=== PATIENT | female | born 1985 | race Caucasian/White ===

== ENCOUNTER 2025-01-21 15:45 | Emergency (ER) | payer OTHER, SELFPAY ==
[2025-01-21 15:50] VITALS: BP 119/76
[2025-01-21] MEDS: ADRENALIN 0.3 MG IM (16:02)
[2025-01-21] MEDS: BENADRYL 50 MG IV (16:03)
[2025-01-21] MEDS: PEPCID 20 MG IV (16:05)
[2025-01-21] MEDS: SOLU-MEDROL PF 125 MG IV (16:05)
[2025-01-21 16:06] VITALS: BP 126/98
[2025-01-21 16:08] VITALS: BMI 22.7
[2025-01-21 17:00] VITALS: BP 115/70
--- NOTE | 2025-01-21 17:10 | ED.GENMED ---
History of Present Illness
General
Chief Complaint: Allergic Reaction
Time Seen by Provider: 01/21/25 15:59
Nursing documentation reviewed up to this point in time: agreed with
History of Present Illness
History of Present Illness:
39-year-old female presents to the ER for evaluation of facial swelling, change in voice, diffuse itchiness which started abruptly 40 minutes prior to arrival. Patient ate falafel for lunch. She has no prior history of anaphylactic medication or
food allergies. She states she had been feeling well prior to abrupt onset of symptoms. No nausea. No shortness of breath. No chest pain. She does take daily metoprolol which she took this morning. She did not taken medications for her
symptoms prior to arrival.
Review of Systems
Review of Systems
Allergies reviewed?: Yes
Phy Exam
Physical Exam
Physical Exam:
Vital signs reviewed, patient is awake, alert, diffuse edema noted to face, with closure of right eye due to periorbital edema, moderate swelling noted to left eye, voice is hoarse, no sublingual swelling seen, posterior pharynx appears clear, no
trismus, heart regular rate and rhythm without murmurs or ectopy, lungs are clear to auscultation without wheezes rales or rhonchi, abdomen is soft and nontender, no hives seen, diffuse erythema noted to skin which is blanching, GCS is 15, 2+ DP
pulses present symmetric bilateral feet
Course
Orders/Labs/Results
Orders:
Orders
01/21/25 15:58
EPINEPHrine PF [Adrenalin] 1 mg .ROUTE .STK-MED ONE
01/21/25 15:59
Diphenhydramine [Benadryl] 50 mg .ROUTE .STK-MED ONE
Diphenhydramine [Benadryl] 50 mg IV NOW STA
EPINEPHrine PF [Adrenalin] 0.3 mg IM NOW STA
Famotidine [Pepcid] 20 mg .ROUTE .STK-MED ONE
Famotidine [Pepcid] 20 mg IV NOW STA
MethylPREDNISolone PF [Solu-Medrol Pf] 125 mg .ROUTE .STK-MED ONE
MethylPREDNISolone PF [Solu-Medrol Pf] 125 mg IV NOW STA
Vital Signs
Initial and Last Documented VS:
Initial Vital Signs
Temp Pulse Resp BP Pulse Ox
98.5 F 105 20 119/76 97
01/21/25 15:50 01/21/25 15:50 01/21/25 15:50 01/21/25 15:50 01/21/25 15:50
Last Documented Vital Signs
Temp Pulse Resp BP Pulse Ox
98.5 F 78 19 116/72 99
01/21/25 15:50 01/21/25 20:00 01/21/25 20:00 01/21/25 20:00 01/21/25 20:00
MDM/Problems Addressed
Differential Diagnosis Includes:
differential diagnosis to consider but not limited to allergic reaction, idiopathic angioedema, anaphylaxis along with other etiologies considered
*Pulse Oximetry
SaO2: 100
Oxygen Mode of Delivery: Room air
Patient hypoxic: no
*[employer] Interpretation
Rate: normal
Interpretation: normal
*Critical Care Note
Total Time (30-74mins, 75-104mins- exclusive of procedures): 30 minutes of critical ca
comment:
30 minutes critical care time utilized for evaluation and reassessment of patient given life-threatening nature of illness
Update Note
Update Note:
Patient reevaluated shortly after administration of epi with improvement in facial edema. Will continue to observe for 4 hours after epi administration. Patient also given Solu-Medrol, Pepcid, Benadryl.
1847: Near complete resolution of periorbital edema, voice is now back to normal. Patient resting comfortably without any further pruritus. Will continue to observe. Patient agrees with plan of care.
2029: Patient feeling well. Ready to go home. I discussed with her strict return precautions along with medication usage at home. Patient is just visiting the area and will follow-up with her primary care physician tomorrow to discuss referral to
[facility]. She has no questions at the current time. Will discharge
ED Attending Note
-
Portions of this chart may have been created with voice recognition software.� Occasional wrong word or��sound alike� substitutions may have occurred due to the inherent limitations of voice recognition software.
Discharge Plan
Departure
Patient Disposition: Home (Routine Discharge)
Date of Disposition: 01/21/25
Time of Disposition: 20:24
Patient with high blood pressure during this ER visit?: No
Discharge Problem:
Anaphylaxis
Prescriptions:
New
prednisone 50 mg tablet
50 mg PO DAILY Qty: 4 0RF
epinephrine [EpiPen 2-Jefry] 0.3 mg/0.3 mL auto-injector
0.3 mg IM Q5-15M PRN (Reason: anaphylaxis) Qty: 2 0RF
Referrals:
NONE,* [Family Provider, Internal Medicine]
Stand Alone Forms: Return to Work
Activity Restrictions/Additional Instructions:
Please contact your primary care physician tomorrow to discuss allergic reaction then obtain referral for an [facility] that is local to your home. If you feel any lip swelling, worsening rash, difficulty breathing, please administer EpiPen and
return to the ER for further care
Interventions
Interventions:
*Risk Screen - Suicide Last Done: 01/21/25 15:50
*General Assessment Last Done: 01/21/25 15:50
*Neglect/Abuse Screening Last Done: 01/21/25 16:10
*ED- Fall Risk Assessment Last Done: 01/21/25 16:10
*ED COVID-19 Vaccine History Last Done: 01/21/25 16:10
ED- Cardiac Assessment Last Done: 01/21/25 16:10
ED- Pulmonary Assessment Last Done: 01/21/25 16:10
ED-Skin Assessment Last Done: 01/21/25 16:10
Discharge Date and Time
Print Language: PORTUGUESE
[2025-01-21 18:00] VITALS: BP 115/79
[2025-01-21 19:00] VITALS: BP 109/74
[2025-01-21 20:00] VITALS: BP 116/72
== END 2025-01-21 20:43 | disposition home or self-care (01) ==
LOC: EMR 15:45
PROVIDERS: EMERGENCY PHYSICIAN Emergency Medicine
DX: T78.09XA Anaphylactic reaction due to other food products, initial encounter (principal); R22.0 Localized swelling, mass and lump, head; X58.XXXA Exposure to other specified factors, initial encounter
CPT/HCPCS: 99291; 96374; 96375; 96372